=== PATIENT | female | born 1960 | race Caucasian/White ===

== ENCOUNTER 2017-05-03 12:29 | Emergency (ER) | payer BC ==
[2017-05-03 12:47] VITALS: BP 124/66
--- NOTE | 2017-05-03 13:04 | EDM.PDOC ---
ED HPI GENERAL MEDICAL PROBLEM - General Chief Complaint: Lower Extremity Injury/Pain Stated Complaint: FOOT PAIN Time Seen by Provider: 05/03/17 12:40 Source of Information: Reports: Patient History Limitations: Reports: No Limitations - History of Present Illness INITIAL COMMENTS - FREE TEXT/NARRATIVE: The patient was walking down her steps outside and she stepped down with her right foot and felt severe pain in her foot. The pain is on the bottom of her right foot towards the heel. The heel is numb. She has good sensation and pulses distally. She does not think she twisted her foot but it is possible her thought. Onset: Sudden Duration: Minutes: Location: Reports: Lower Extremity, Right (foot) Quality: Reports: Sharp Severity: Moderate Improves with: Reports: None Worsens with: Reports: None Associated Symptoms: Reports: No Other Symptoms Right Feet Pain Score (Numeric/FACES): 10 - Related Data Allergies Allergy/AdvReac Type Severity Reaction Status Date / Time Penicillins Allergy Hives Verified 03/20/16 18:18 Home Meds: Home Meds Aspirin [Adult Low Dose Aspirin EC] 162 mg PO DAILY 12/05/13 [History] Levothyroxine Sodium [Levoxyl] 125 mcg PO DAILY 12/05/13 [History] Subcutaneous Insulin Pump [Insulin Pump] 1 each MC ASDIRECTED 12/05/13 [History] Multivitamin [Multivitamins] 1 each PO DAILY 06/22/15 [History] Cyclobenzaprine [Flexeril] 10 mg PO TID PRN #20 tab 07/23/15 [Rx] Hydrocodone/Acetaminophen [Hydrocodon-Acetaminophen 5-325] 1 - 2 each PO Q6HR PRN #20 tablet 07/23/15 [Rx] Ascorbic Acid [Vitamin C] 500 mg PO DAILY 03/20/16 [History] Calcium Carbonate [Calcium] 500 mg PO DAILY 03/20/16 [History] Past Medical History Musculoskeletal History: Reports: Other (See Below) Other Musculoskeletal History: club feet surgery Endocrine/Metabolic History: Reports: Diabetes, Type I, Hypothyroidism Dermatologic History: Reports: Other (See Below) Other Dermatologic History: Autoimmune disease, skin rash to body - Past Surgical History HEENT Surgical History: Reports: Tonsillectomy Female Surgical History: Reports: Tubal Ligation Musculoskeletal Surgical History: Reports: Arthroscopic Knee Social & Family History - Family History Cardiac: Reports: CAD, [place] Endocrine/Metabolic: Reports: Diabetes, type II Oncologic: Reports: Prostate - Tobacco Use Smoking Status *Q: Never Smoker Second Hand Smoke Exposure: No - Caffeine Use Caffeine Use: Reports: Soda, Tea - Alcohol Use Days Per Week of Alcohol Use: 0 - Recreational Drug Use Recreational Drug Use: No Review of Systems - Review of Systems Review Of Systems: See Below Constitutional: Reports: No Symptoms Eyes: Reports: No Symptoms Ears: Reports: No Symptoms Nose: Reports: No Symptoms Mouth/Throat: Reports: No Symptoms Respiratory: Reports: No Symptoms Cardiovascular: Reports: No Symptoms GI/Abdominal: Reports: No Symptoms Genitourinary: Reports: No Symptoms Musculoskeletal: Reports: Other (Right foot pain) ED EXAM, GENERAL - Physical Exam Exam: See Below Exam Limited By: No Limitations General Appearance: Alert, No Apparent Distress Ears: Normal External Exam Nose: Normal Inspection Head: Atraumatic, Normocephalic Neck: Normal Inspection Respiratory/Chest: No Respiratory Distress Extremities: Other (Pain upon palpaton to the right heel. At the base of the heel. She has some numbness to the right heel. She has good sensation and pulses to the rest of the foot.) Course - Vital Signs Last Recorded V/S: Last Vital Signs Temp 97.8 F 05/03/17 12:44 Pulse 55 L 05/03/17 12:44 Resp 20 05/03/17 12:44 BP 124/66 05/03/17 12:44 Pulse Ox 97 05/03/17 12:44 - Orders/Labs/Meds Orders: Active Orders 24 hr Category Date Time Status Foot Comp Min 3V Rt [CR] Stat Exams 05/03/17 12:58 Ordered - Re-Assessments/Exams Free Text/Narrative Re-Assessment/Exam: 05/03/17 13:23 Her x-ray looks good. It appears to be a sprain. I will discharge her home. Departure - Departure Time of Disposition: 13:25 Disposition: Home, Self-Care 01 Condition: Good Clinical Impression: Sprain of right foot Qualifiers: Encounter type: initial encounter Qualified Code(s): S93.601A - Unspecified sprain of right foot, initial encounter - Discharge Information Referrals: Joe Parra MD [Primary Care Provider] - Forms: ED Department Discharge, ED Return to Work/School Form Additional Instructions: Wear a stiff soled shoe. Take motrin or aleve for the pain. Ice your foot 3 times a day for 2 days. Follow up with your doctor if not better in 2 week. - My Orders Last 24 Hours: My Active Orders 05/03/17 12:58 Foot Comp Min 3V Rt [CR] Stat - Assessment/Plan Last 24 Hours: My Active Orders 05/03/17 12:58 Foot Comp Min 3V Rt [CR] Stat
--- NOTE | 2017-05-04 07:38 | CR ---
Right foot: Four views of the right foot were obtained. Comparison: Previous right foot study of 02/12/09. Plantar spur is noted. Severe joint space narrowing is noted within the first MTP joint which has progressed from prior exam. Equivocal fracture is noted within the cuboid bone. Impression: 1. Increasing joint space narrowing within the first MTP joint. Stable plantar spur. 2. Equivocal fracture within the cuboid bone. If patient has midfoot symptoms, CT is recommended to further evaluate. Diagnostic code #3
== END 2017-05-03 13:30 | disposition home or self-care (01) ==
LOC: JD.ED 12:29
DX: S93.601A Unspecified sprain of right foot, initial encounter (principal); Z88.0 Allergy status to penicillin; Z79.82 Long term (current) use of aspirin; Z79.899 Other long term (current) drug therapy; X58.XXXA Exposure to other specified factors, initial encounter
CPT/HCPCS: 73630-26-RT; 73630-RT; 99283

== ENCOUNTER 2018-09-16 08:41 | Day surgery (SDC) | payer BC ==
[~2018-09-16 08:41] MED LIST: Cefuroxime 10 MG/ML SYRINGE EYERT SCH; Lidocaine 1% PF 2 ML SDV INJECT SCH; Pilocarpine 4% Ophth Soln 15 ML Bot EYERT SCH; Tropicamide 0.5% Ophth Soln 15 ML Bottle EYERT SCH
[2018-09-16] MEDS: Polymyxin B/Trimethoprim 10 ML Bottle EYERT SCH ×3 (09:32→11:32)
[2018-09-16] MEDS: Brimonidine 0.2% Ophth Soln 5 ML Bottle EYERT SCH ×3 (09:37→11:32)
--- NOTE | 2018-09-16 09:39 | PCM.PREANE ---
Preanesthetic Assessment - Anesthesia/Transfusion/Family Hx Anesthesia History: Prior Anesthesia Without Reaction Family History of Anesthesia Reaction: No Transfusion History: No Prior Transfusion(s) - Review of Systems General: No Symptoms Pulmonary: No Symptoms Cardiovascular: No Symptoms Gastrointestinal: No Symptoms Neurological: No Symptoms Other: Reports: Diabetes (pt states BS was 50 at 0500, with eating BS 167) - Physical Assessment NPO Status Date: 09/16/18 NPO Status Time: 07:30 Pulse: 55 O2 Sat by Pulse Oximetry: 97 Respiratory Rate: 16 Blood Pressure: 127/56 Temperature: 98.6 C ASA Class: 2 Mental Status: Alert & Oriented x3 Airway Class: Mallampati = 2 Dentition: Reports: Normal Dentition Thyro-Mental Finger Breadths: 3 Mouth Opening Finger Breadths: 3 ROM/Head Extension: Full Lungs: Clear to Auscultation, Normal Respiratory Effort Cardiovascular: Regular Rate, Regular Rhythm - Allergies Allergies/Adverse Reactions: Allergies Allergy/AdvReac Type Severity Reaction Status Date / Time Penicillins Allergy Hives Verified 09/15/18 13:40 - Acknowledgements Anesthesia Type Planned: MAC Pt an Appropriate Candidate for the Planned Anesthesia: Yes Alternatives and Risks of Anesthesia Discussed w Pt/Guardian: Yes Pt/Guardian Understands and Agrees with Anesthesia Plan: Yes PreAnesthesia Questionnaire HEENT History: Reports: Cataract Cardiovascular History: Reports: High Cholesterol Respiratory History: Reports: None Gastrointestinal History: Reports: None Genitourinary History: Reports: UTI, Recurrent Musculoskeletal History: Reports: Other (See Below) Other Musculoskeletal History: club feet surgery Endocrine/Metabolic History: Reports: Diabetes, Type I, Hypothyroidism Dermatologic History: Reports: Other (See Below) Other Dermatologic History: Autoimmune disease, skin rash to body - Past Surgical History HEENT Surgical History: Reports: Tonsillectomy Female Surgical History: Reports: Tubal Ligation Musculoskeletal Surgical History: Reports: Arthroscopic Knee ((L)) - SUBSTANCE USE Smoking Status *Q: Never Smoker - HOME MEDS Home Medications: Home Meds Subcutaneous Insulin Pump [Insulin Pump] 1 each MC ASDIRECTED 12/05/13 [History] Multivitamin [Multivitamins] 1 each PO DAILY 06/22/15 [History] Ascorbic Acid [Vitamin C] 500 mg PO DAILY 03/20/16 [History] Cholecalciferol (Vitamin D3) [Vitamin D3] 1,000 unit PO DAILY 09/15/18 [History] Levothyroxine 112 mcg PO Q48H 09/15/18 [History] Levothyroxine 125 mcg PO Q48H 09/15/18 [History] Rosuvastatin Calcium 5 mg PO DAILY 09/15/18 [History] - CURRENT (IN HOUSE) MEDS Current Meds: Current Medications Brimonidine Tartrate (Alphagan 0.2% Ophth Soln) 0 ml EYERT ASDIRECTED OMAR Stop: 09/16/18 23:00 Cefuroxime Sodium (Zinacef) 0 mg EYERT ASDIRECTED OMAR Stop: 09/16/18 23:00 Lidocaine HCl (Xylocaine-Mpf 1%) 0 ml INJECT ASDIRECTED OMAR Stop: 09/16/18 23:00 Phenylephrine HCl (Jake-Synephrine 2.5% Ophth Soln) 0 ml EYERT ASDIRECTED OMAR Stop: 09/16/18 23:00 Pilocarpine HCl (Pilocar 4% Ophth Soln) 0 ml EYERT ASDIRECTED OMAR Stop: 09/16/18 23:00 Polymyxin/Trimethoprim Sulfate (Polytrim Ophth Soln) 0 ml EYERT ASDIRECTED OMAR Stop: 09/16/18 23:00 Last Admin: 09/16/18 09:32 Dose: 1 drop Tetracaine HCl (Tetracaine 0.5% Steri-Unit Laura) 0 ml EYERT ASDIRECTED OMAR Stop: 09/16/18 23:00 Tropicamide (Mydriacyl 1% Ophth Soln) 0 ml EYERT ASDIRECTED OMAR Stop: 09/16/18 18:00 Discontinued Medications Tropicamide (Mydriacyl 0.5% Ophth Soln) 0 ml EYERT ASDIRECTED OMAR Stop: 09/16/18 23:00
[2018-09-16] MEDS: Phenylephrine 2.5% Ophth Soln 2 ML Bot EYERT SCH ×6 (09:42→11:04)
[2018-09-16] MEDS: Tropicamide 1% Ophth Soln 15 ML Bottle EYERT SCH ×4 (09:48→10:38)
[2018-09-16] MEDS: Tetracaine HCl/PF 0.5% 4 ML Bottle EYERT SCH ×4 (10:41→11:22)
--- NOTE | 2018-09-16 11:37 | PCM48HPAN ---
Post Anesthesia Note - EVALUATION WITHIN 48HRS OF ANESTHETIC Vital Signs in Normal Range: Yes Patient Participated in Evaluation: Yes Respiratory Function Stable: Yes Airway Patent: Yes Cardiovascular Function Stable: Yes Hydration Status Stable: Yes Pain Control Satisfactory: Yes Nausea and Vomiting Control Satisfactory: Yes Mental Status Recovered: Yes Pulse Rate: 55 Resp Rate: 16 Temperature: 98.6 C Blood Pressure: 127/56
[2018-09-16 11:48] VITALS: BP 113/57
== END 2018-09-16 11:45 | disposition home or self-care (01) ==
LOC: JD.SDS 08:41
PROVIDERS: ATTEND Ophthalmology
DX: E10.36 Type 1 diabetes mellitus with diabetic cataract (principal); H25.811 Combined forms of age-related cataract, right eye; E10.3293 Type 1 diabetes mellitus with mild nonproliferative diabetic retinopathy without macular edema, bilateral; H21.81 Floppy iris syndrome; H21.42 Pupillary membranes, left eye; E03.9 Hypothyroidism, unspecified; Z79.4 Long term (current) use of insulin; E78.00 Pure hypercholesterolemia, unspecified; E07.9 Disorder of thyroid, unspecified; Z79.890 Hormone replacement therapy; Z79.899 Other long term (current) drug therapy
CPT/HCPCS: 66982; A9270; C1780; J0697; J2001

== ENCOUNTER 2023-04-05 11:09 | Emergency (ER) | payer MEDICARE, OTHER ==
[2023-04-05] MEDS ORDERED: Sodium Chloride 0.9% 1,000 ML IV STA (11:45)
[2023-04-05] MEDS ORDERED: Sodium Chloride 0.9% 10 ML Syringe FLUSH PRN (11:45)
[2023-04-05] MEDS ORDERED: Ondansetron 4 MG/2 ML SDV IVPUSH ONE (11:46)
[2023-04-05 13:06] LABS: BASOPHILS PERCENT AUTO 0.1 % (0.0-1.0); EOSINOPHILS ABSOLUTE AUTO 0.1 K/mm3 (0.0-0.4); EOSINOPHILS PERCENT AUTO 0.6 % (0.0-6.0); HEMATOCRIT 42.9 % (37.0-47.0); HEMOGLOBIN 14.3 gm/dl (12.0-16.0); IMMATURE GRAN ABSOLUTE AUTO 0.04 K/mm3 (0.00-0.05); IMMATURE GRAN PERCENT AUTO 0.5 % (0.0-0.4); LYMPHOCYTES ABSOLUTE AUTO 0.7 K/mm3 (1.0-4.8); LYMPHOCYTES PERCENT AUTO 8.3 % (24.0-44.0); MEAN CORPUSCULAR HEMOGLOBIN 31.7 pg (28.0-32.0); MEAN CORPUSCULAR HGB CONC 33.3 g/dl (32.0-36.0); MEAN CORPUSCULAR VOLUME 95.1 fl (83.0-99.0); MEAN PLATELET VOLUME 11.2 fl (9.4-12.3); MONOCYTES ABSOLUTE AUTO 0.2 K/mm3 (0.0-0.8); MONOCYTES PERCENT AUTO 2.9 % (0.0-8.0); NEUTROPHILS ABSOLUTE AUTO 7.3 K/mm3 (1.8-7.7); NEUTROPHILS PERCENT AUTO 87.6 % (41.0-71.0); PLATELET COUNT,PLT 177 K/mm3 (150-400); RED BLOOD CELL COUNT 4.51 M/mm3 (4.10-5.30); WHITE BLOOD CELL COUNT,WBC 8.32 K/mm3 (3.9-11.3)
[2023-04-05 13:19] LABS: CORONAVIRUS COVID-19 NAA NEGATIVE (NEGATIVE); INFLUENZA A NAA NEGATIVE (NEGATIVE); RESPIRATORY SYNCYTIAL VIR NAA NEGATIVE (NEGATIVE)
[2023-04-05 13:21] LABS: APPEARANCE,URINE CLEAR (Clear); BILIRUBIN,URINE NEGATIVE (Negative); COLOR,URINE YELLOW (Yellow); GLUCOSE,URINE 2+ (Negative); KETONES,URINE 3+ (Negative); LEUKOCYTE ESTERASE,URINE NEGATIVE (Negative); NITRITE,URINE NEGATIVE (Negative); OCCULT BLOOD,URINE TRACE-INTACT (Negative); PH,URINE 5.5 (5.0-8.0); PROTEIN,URINE NEGATIVE (Negative); UROBILINOGEN,URINE 0.2 (0.2-1.0)
[2023-04-05 13:34] LABS: A/G RATIO 1.1 (1-2); ALBUMIN 3.8 g/dl (3.4-5.0); ANION GAP 19.9 (5-15); BILIRUBIN TOTAL 0.6 mg/dL (0.2-1.0); BUN/CREATININE RATIO 20.9 (14-18); C-REACTIVE PROTEIN 0.5 mg/dL (<1.0); CALCIUM 9.8 mg/dL (8.5-10.1); CREATININE 1.1 mg/dL (0.55-1.02); EST CRCL DRUG DOSING (CG) 39.07 mL/min; POTASSIUM,K 4.9 mEq/L (3.5-5.1); PROTEIN TOTAL,TP 7.4 g/dl (6.4-8.2)
[2023-04-05] MEDS ORDERED: Sodium Chloride 0.9% 1,000 ML IV SCH ×3 (14:00→15:45)
[2023-04-05] MEDS ORDERED: Sodium Chloride 0.9% 1,000 ML IV ONE (14:15)
[2023-04-05 14:44] LABS: BACTERIA,URINE RARE /hpf (FEW); EPITHELIAL CELLS,URINE 0-5 /hpf (0-5); MUCUS,URINE NOT SEEN /hpf (FEW); RBC,URINE 0-5 /hpf (0-5); WBC,URINE 0-5 /hpf (0-5)
[2023-04-05 18:08] VITALS: BP 118/51; PULSE 71
== END 2023-04-05 17:53 | disposition home or self-care (01) ==
LOC: JD.ED 11:09
DX: E10.65 Type 1 diabetes mellitus with hyperglycemia (principal); E03.9 Hypothyroidism, unspecified; E78.00 Pure hypercholesterolemia, unspecified; Z88.0 Allergy status to penicillin; Z20.822 Contact with and (suspected) exposure to COVID-19; Z79.899 Other long term (current) drug therapy
CPT/HCPCS: 0241U; 36415; 80053; 81001; 82009; 82947; 85025; 86140; 96361; 96374; 99283; J2405; J7030; 99284

== ENCOUNTER 2024-08-22 09:04 | Emergency (ER) | payer MEDICARE, OTHER ==
[2024-08-22 09:38] VITALS: BP 145/68; PULSE 59
[2024-08-22] MEDS: HYDROmorphone 0.5 MG/0.5 ML Syringe IVPUSH ONE (10:53)
[2024-08-22] MEDS: Sodium Chloride 0.9% 10 ML Syringe FLUSH PRN (10:53)
[2024-08-22] MEDS: Ondansetron 4 MG/2 ML SDV IVPUSH ONE (11:47)
[2024-08-22] MEDS: Propofol 200 MG/20 ML SDV IVPUSH ONE (12:10)
== END 2024-08-22 13:15 | disposition home or self-care (01) ==
LOC: JD.ED 09:04
DX: S52.592A Other fractures of lower end of left radius, initial encounter for closed fracture (principal); E78.00 Pure hypercholesterolemia, unspecified; E10.9 Type 1 diabetes mellitus without complications; E03.9 Hypothyroidism, unspecified; Z88.0 Allergy status to penicillin; Z79.82 Long term (current) use of aspirin; Z79.890 Hormone replacement therapy; Z79.899 Other long term (current) drug therapy; W00.0XXA Fall on same level due to ice and snow, initial encounter
CPT/HCPCS: 25605; 73100; 73110; 96374; 96375; 99283; J2405; J2704

== ENCOUNTER 2024-08-23 18:38 | Emergency (ER) | payer MEDICARE, OTHER ==
[2024-08-23] MEDS: Ketorolac 60 MG/2 ML SDV IM ONE (19:59)
[2024-08-23] MEDS: Diazepam 2 MG Tab PO ONE (20:00)
[2024-08-23] MEDS: Ondansetron 4 MG Tab.DIS PO ONE (20:00)
[2024-08-23 20:20] VITALS: BP 124/59; PULSE 68
== END 2024-08-23 20:19 | disposition home or self-care (01) ==
LOC: JD.ED 18:38
DX: G44.209 Tension-type headache, unspecified, not intractable (principal); M62.838 Other muscle spasm; E78.00 Pure hypercholesterolemia, unspecified; E10.9 Type 1 diabetes mellitus without complications; E03.9 Hypothyroidism, unspecified; Z88.0 Allergy status to penicillin; Z79.82 Long term (current) use of aspirin; Z79.890 Hormone replacement therapy; Z79.899 Other long term (current) drug therapy
CPT/HCPCS: 96372; 99283; A9270-GY; J1885